=== PATIENT | male | born 1940 | race Hispanic/Latino ===

== ENCOUNTER 2020-11-09 08:58 | Observation (INO) | payer MEDICARE, OTHER ==
[2020-11-09] MEDS ORDERED: SODIUM CHLORIDE 0.9% 1000 ML 1,000 ML IV SCH (09:30)
[2020-11-09 09:55] LABS: Basophils # (Auto) 0.1 K/mm3 (0.0-0.1); Basophils % (Auto) 1.6 % (0.0-1.8); Eosinophils # (Auto) 0.3 K/mm3 (0.0-0.4); Eosinophils % (Auto) 3.7 % (0.0-4.3); Hematocrit 36.7 % (35.5-45.6); Hemoglobin 11.9 gm/dl (11.8-15.2); Lymphocytes % (Auto) 13.8 % (13.4-35.0); Mean Corpuscular HGB Conc 33 % (32-34); Mean Corpuscular Volume 76 fl (84-94); Monocytes # (Auto) 0.6 K/mm3 (0.0-0.8); Monocytes % (Auto) 8.2 % (0.0-7.3); Platelet Count 182 K/mm3 (140-440); Red Blood Count 4.83 M/mm3 (3.65-5.03); Red Cell Distribution Width 16.6 % (13.2-15.2)
[2020-11-09] MEDS ORDERED: ceFAZolin/Water 2 GM/20 ML 2 GM/20 ML SYRINGE IV NR (10:00)
[2020-11-09 10:10] LABS: INR 0.98 (0.87-1.13)
[2020-11-09 10:15] LABS: Calcium 9.3 mg/dL (8.4-10.2)
--- NOTE | 2020-11-09 10:47 | Anesthesia Day of Surgery ---
Anesthesia Day of Surgery - Day of Surgery Patient Examined: Yes Patient H&P Reviewed: Yes Patient is NPO: Yes
--- NOTE | 2020-11-09 10:50 | Anesthesia Consultation ---
Anesthesia Consult and Med Hx Date of service: 11/09/20 - Airway Anesthetic Teeth Evaluation: Chipped ROM Head & Neck: Adequate Mental/Hyoid Distance: Adequate Mallampati Class: Class II Intubation Access Assessment: Good - Pre-Operative Health Status ASA Pre-Surgery Classification: ASA3 Proposed Anesthetic Plan: MAC (GA if needed) - Pulmonary Hx Smoking: Yes (quit 40 yrs ago) Hx Asthma: No Hx Respiratory Symptoms: No COPD: No Hx Pneumonia: No Hx Sleep Apnea: Yes (yrs ago) - Cardiovascular System Hx Hypertension: Yes (Ischemic CM-EF 30-35%) Hx Coronary Artery Disease: Yes (preserved EF) Hx Heart Attack/AMI: Yes (NSTEMI 11/05/19 & stents placed) Hx Percutaneous Transluminal Coronary Angioplasty (PTCA): Yes (KENYA to LAD and LCx 11/05/19) Hx Cardia Arrhythmia: Yes (pA-fib/PVC/VT) Hx Peripheral Vascular Disease: Yes - Central Nervous System CVA: No Hx Psychiatric Problems: No - Gastrointestinal Hx Gastroesophageal Reflux Disease: No - Endocrine Hx Renal Disease: Yes (KAYDEN) Hx End Stage Renal Disease: No Hx Liver Disease: No Hx Insulin Dependent Diabetes: Yes Hx Non-Insulin Dependent Diabetes: Yes (FBS 343) Hx Thyroid Disease: No - Hematic Hx Anemia: Yes - Other Systems Hx Cancer: No
[2020-11-09] MEDS ORDERED: INSULIN LISPRO 100 UNIT/ML SUB-Q NR (11:00)
[2020-11-09] MEDS ORDERED: SODIUM CHLORIDE IRRI 1000 ML 1,000 ML, .VANCOMYCIN VIAL 1,000 MG IR ONE (11:00)
--- NOTE | 2020-11-09 11:25 | Short Stay Summary ---
<MAGED WOMACK - Last Filed: 11/09/20 11:20> Short Stay Documentation Date of service: 11/09/20 - History H&P: obtained from office - Allergies and Medications Current Medications: Allergies No Known Allergies Allergy (Verified 11/12/19 10:09) Home Medications Medication Instructions Recorded Confirmed Last Taken Type Pantoprazole [Protonix TAB] 40 mg PO QDAC #30 tablet 11/28/19 11/09/20 11/08/20 Rx 40 mg Prasugrel [Effient] 10 mg PO QDAY #30 tablet 11/28/19 11/09/20 11/08/20 Rx 10 mg AtorvaSTATin [Lipitor] 80 mg PO QHS 11/09/20 11/09/20 11/08/20 History 80 Ergocalciferol [Vitamin D2] 1 tab PO QWEEK 11/09/20 11/09/20 11/03/20 History 1 tab Insulin Detemir [Levemir VIAL] 50 units SQ DAILY 11/09/20 11/09/20 11/08/20 History 50 units Insulin Regular, Human Nicu 20 unit SQ DAILY 11/09/20 11/09/20 11/08/20 History [HumuLIN R NICU (1 UNIT/1 ML)] 20 units Levothyroxine [Synthroid] 50 mcg PO QAM 11/09/20 11/09/20 11/08/20 History 50 mcg Metformin HCl [Metformin HCl ER] 500 mg PO DAILY 11/09/20 11/09/20 11/08/20 History 500 mg Metoprolol [Lopressor TAB] 50 mg PO DAILY 11/09/20 11/09/20 11/08/20 History 50 mg Active Medications Cefazolin Sodium (Ancef/Sterile Water 2 Gm/20 Ml) 2 gm in 20 mls @ 80 mls/hr IV PREOP NR; Protocol Stop: 11/09/20 17:00 Sodium Chloride (Nacl 0.9% 1000 Ml) 1,000 mls @ 50 mls/hr IV DIRECT MARISOL Insulin Human Lispro (Insulin Lispro 100 Unit/Ml) 10 unit SUB-Q ONCE NR Stop: 11/09/20 11:30 Last Admin: 11/09/20 11:02 Dose: 10 unit Documented by: - Brief post op/procedure progress note Date of procedure: 11/09/20 Pre-op diagnosis: Ischemic cardiomyopathy Post-op diagnosis: same Procedure: ICD implantation see dictated report Anesthesia: local Estimated blood loss: minimal Condition: stable - Disposition Condition at discharge: Good - Discharge Diagnoses (1) Ischemic cardiomyopathy with implantable cardioverter-defibrillator (ICD) Status: Acute Short Stay Discharge Plan Activity: advance as tolerated Diet: low fat, low cholesterol, low salt Wound: open to air, keep clean and dry, per your surgeon's advice Special Instructions: restrict fluid intake to (1500 mL) Follow up with: LUCÍA MCFADDEN MD [Primary Care Provider] - 7 Days BALAJI WILSON MD [Staff Physician] - 7 Days (Patient should follow-up with Dr Mirian Wilson, [facility] seafood technology specialist on 01/05/2021 at 2 PM in our [place] location. #[phone]) MERARY MACIAS MD [Staff Physician] - 10 Days (Patient should follow-up with Dr. Arminda Macias, [facility] heart specialists for postop inspection and device interrogation on 11/21/2020 at 930 in our [place] office. #[phone]) <NICOLASA RENEE - Last Filed: 11/10/20 11:29> Short Stay Documentation - Allergies and Medications Current Medications: Allergies No Known Allergies Allergy (Verified 11/12/19 10:09) Home Medications Medication Instructions Recorded Confirmed Last Taken Type Pantoprazole [Protonix TAB] 40 mg PO QDAC #30 tablet 11/28/19 11/09/20 11/08/20 Rx 40 mg Prasugrel [Effient] 10 mg PO QDAY #30 tablet 11/28/19 11/09/20 11/08/20 Rx 10 mg AtorvaSTATin [Lipitor] 80 mg PO QHS 11/09/20 11/09/20 11/08/20 History 80 Ergocalciferol [Vitamin D2] 1 tab PO QWEEK 11/09/20 11/09/20 11/03/20 History 1 tab Insulin Detemir [Levemir VIAL] 50 units SQ DAILY 11/09/20 11/09/20 11/08/20 History 50 units Insulin Regular, Human Nicu 20 unit SQ DAILY 11/09/20 11/09/20 11/08/20 History [HumuLIN R NICU (1 UNIT/1 ML)] 20 units Levothyroxine [Synthroid] 50 mcg PO QAM 11/09/20 11/09/20 11/08/20 History 50 mcg Metformin HCl [Metformin HCl ER] 500 mg PO DAILY 11/09/20 11/09/20 11/08/20 History 500 mg Metoprolol [Lopressor TAB] 50 mg PO DAILY 11/09/20 11/09/20 11/08/20 History 50 mg Active Medications Acetaminophen (Acetaminophen 325 Mg Tab) 650 mg PO Q4H PRN PRN Reason: Mild pain (1-3) Hydrocodone Bitart/Acetaminophen (Hydrocodone/Acetaminophen 5-325 Mg Tab) 1 each PO Q4H PRN PRN Reason: Moderate pain (4-6) Dextrose (Dextrose 50% In Water (25gm) 50 Ml Syringe) 50 ml IV Q30MIN PRN; Protocol PRN Reason: Hypoglycemia Sodium Chloride (Nacl 0.9% 1000 Ml) 1,000 mls @ 50 mls/hr IV DIRECT MARISOL Last Admin: 11/09/20 22:15 Dose: 50 mls/hr Documented by: Insulin Human Lispro (Insulin Lispro 100 Unit/Ml) 0 unit SUB-Q Q6HR MARISOL; Protocol Last Admin: 11/10/20 06:11 Dose: 4 unit Documented by: Naloxone HCl (Naloxone 0.4 Mg/1 Ml Inj) 0.1 mg IV Q2MIN PRN PRN Reason: Res Rate </= 8 or 02 SAT < 92% Ondansetron HCl (Ondansetron 4 Mg/2 Ml Inj) 4 mg IV Q8H PRN PRN Reason: Nausea And Vomiting Oxycodone/Acetaminophen (Oxycodone /Acetaminophen 5-325mg Tab) 1 tab PO Q6H PRN PRN Reason: Pain, Moderate (4-6) Sodium Chloride (Sodium Chloride 0.9% 10 Ml Flush Syringe) 10 ml IV PRN PRN PRN Reason: LINE FLUSH
[2020-11-09] MEDS ORDERED: ACETAMINOPHEN 325 MG TAB PO PRN ×2 (11:37→15:00)
[2020-11-09] MEDS ORDERED: LIDOCAINE MPF (2%) 20 MG/1 ML VIAL 5 ML ONE (11:50)
[2020-11-09] MEDS ORDERED: SODIUM CHLORIDE 0.9% 500 ML 500 ML ONE (11:58)
[2020-11-09] MEDS ORDERED: MIDAZOLAM 2 MG/2 ML INJ ONE (12:00)
[2020-11-09] MEDS ORDERED: KETAMINE/STERILE WATER 50 MG/ML SYRINGE ONE (12:00)
[2020-11-09] MEDS ORDERED: ONDANSETRON 4 MG/2 ML INJ IV PRN (12:00)
[2020-11-09] MEDS ORDERED: NALOXONE 0.4 MG/1 ML INJ IV PRN (12:00)
[2020-11-09] MEDS ORDERED: HYDROcodone/ACETAMINOPHEN 5-325 MG TAB PO PRN ×2 (12:00→15:00)
[2020-11-09] MEDS ORDERED: MORPHINE 4 MG/1 ML INJ IV PRN (12:00)
[2020-11-09] MEDS ORDERED: fentaNYL 100 MCG/2 ML INJ ONE (12:01)
[2020-11-09] MEDS ORDERED: SODIUM CHLORIDE IRRI 500 ML 500 ML IR ONE (12:17)
[2020-11-09] MEDS: ceFAZolin/Water 2 GM/20 ML 2 GM/20 ML SYRINGE IV ONE ×2 (12:20→12:49)
[2020-11-09] MEDS: BUPIVACAINE/PF (0.5%) 5 MG/1 ML 30 ML VIAL INFILTRATI ONE ×2 (12:41→12:48)
[2020-11-09] MEDS: LIDOCAINE (1%) 10 MG/1 ML VIAL 20 ML MDV ONE ×2 (12:41→12:48)
[2020-11-09] MEDS ORDERED: .VANCOMYCIN VIAL 1,000 MG in SODIUM CHLORIDE IRRI 1000 ML 1,000 ML IRRIGATION ONE (13:53)
[2020-11-09] MEDS ORDERED: oxyCODONE /ACETAMINOPHEN 5-325MG TAB PO PRN (15:00)
[2020-11-09] MEDS ORDERED: DEXTROSE 50% IN WATER (25GM) 50 ML SYRINGE IV PRN (16:00)
--- NOTE | 2020-11-09 16:06 | XRay Report ---
CHEST 1 VIEW 11/09/2020 2:56 PM INDICATION / CLINICAL INFORMATION: Pacemaker Postop. COMPARISON: November 27, 2019 FINDINGS: SUPPORT DEVICES: None. HEART / MEDIASTINUM: No significant abnormality. LUNGS / PLEURA: No significant pulmonary or pleural abnormality. Calcified hilar nodes are seen in th e right, unchanged ADDITIONAL FINDINGS: No significant additional findings. IMPRESSION: 1. No acute findings. Signer Name: Sanjay Oconnor MD Signed: 11/09/2020 4:01 PM Workstation Name: [id number]
--- NOTE | 2020-11-09 16:53 | Post Anesthesia Evaluation ---
- Post Anesthesia Evaluation Patient Participated: Yes Airway Patent: Yes Stable Respiratory Function: Yes Nausea/Vomiting: No Temp > 96.8F: Yes Pain Manageable: Yes Adequeate Hydration: Yes Anesthesia Complications: No Block Receding Appropriately: Not Applicable Patient on Ventilator: No
[2020-11-09] MEDS: INSULIN LISPRO 100 UNIT/ML SUB-Q SCH (18:46)
--- NOTE | 2020-11-09 18:59 | XRay Report ---
CHEST 1 VIEW 11/09/2020 5:46 PM INDICATION / CLINICAL INFORMATION: PostOp rule out Pneumothorax. COMPARISON: November 09 earlier today FINDINGS: SUPPORT DEVICES: Single-lead pacer is noted. HEART / MEDIASTINUM: No significant abnormality. LUNGS / PLEURA: Mild elevation the right hemidiaphragm persists. No pneumothorax. ADDITIONAL FINDINGS: No significant additional findings. IMPRESSION: 1. No acute findings. Signer Name: Sanjay Oconnor MD Signed: 11/09/2020 6:55 PM Workstation Name: [id number]
[2020-11-09] MEDS: ceFAZolin/NS 1 GM/50 ML 1 GM/50 ML BAG IV SCH (22:14)
[2020-11-10] MEDS: INSULIN LISPRO 100 UNIT/ML SUB-Q SCH ×3 (00:15→15:54)
[2020-11-10] MEDS: ceFAZolin/NS 1 GM/50 ML 1 GM/50 ML BAG IV SCH (06:11)
--- NOTE | 2020-11-10 09:54 | XRay Report ---
CHEST - 1 VIEW 0927 hours INDICATION: device check COMPARISON: Yesterday FINDINGS: Support devices: Single lead pacemaker device is unchanged terminating in the right ventricle. Heart: Stable cardiomediastinal silhouette. Lungs/pleura: The lungs remain clear with no evidence for infiltrate, pleural fluid or pneumothorax. Additional findings: None. IMPRESSION: No acute process. No change since yesterday's exam. Signer Name: Sachin Hernandez Jr, MD Signed: 11/10/2020 9:49 AM Workstation Name: [id number]
--- NOTE | 2020-11-10 10:13 | Electrocardiograph Report ---
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
[2020-11-10 12:28] VITALS: BP 147/76
== END 2020-11-10 16:00 | disposition home or self-care (01) ==
LOC: CATHLABREC 08:58 → 4A 11:37
PROVIDERS: ADMIT Internal Medicine Cardiovascular Disease; ATTEND Internal Medicine Cardiovascular Disease
DX: I25.5 Ischemic cardiomyopathy (principal); I49.9 Cardiac arrhythmia, unspecified; E11.9 Type 2 diabetes mellitus without complications; Z79.4 Long term (current) use of insulin; Z79.899 Other long term (current) drug therapy
CPT/HCPCS: 33249; 36415; 71045; 80048; 82962; 85025; 85610; 93005; 96365; 96366; C1722; C1777; C1892; G0378; J0690; J2250; J2704; J3370; J3490; J7030; J7040; J1815; J3010; Q9967